=== PATIENT | female | born 1985 | race Caucasian/White ===

== ENCOUNTER 2016-10-30 17:16 | Emergency (ER) | payer OTHER ==
[2016-10-30 17:51] VITALS: BP 130/82
--- NOTE | 2016-10-30 17:56 | ED Physician Documentation ---
Sore Throat/Dental Pain - HISTORIAN Historian: patient - HPI Stated Complaint: juliane flank pain, cough Chief Complaint: Sore Throat Additional Information: sore throat started today, UTI discovered last week and on bactrim, but c/o bilat flank pain, also says she has 1 week cough and wheeze Onset: days ago Context: denies: Foreign Body, Fractured Tooth Associated Symptoms: sore throat, mild, congestion, cough. denies: fever, runny nose Worsened By: nothing Further Comments: no - ROS CONST: no problems CVS/RESP: none GI/: denies: problems urinating MS/SKIN/LYMPH: denies: muscle aches NEURO/PSYCH: none - PAST HX Past History: none Other History: none Immunizations: UTD Allergies/Adverse Reactions: Allergies Allergy/AdvReac Type Severity Reaction Status Date / Time No Known Allergies Allergy Verified 10/30/16 17:51 Home Medications: Ambulatory Orders Medication Instructions Recorded Amitriptyline HCl [Elavil] 25 mg PO HS 10/30/16 Gabapentin [Gabapentin] 300 mg PO TID 10/30/16 Hydroxyzine Pamoate [Vistaril] 25 mg PO Q6 PRN 10/30/16 Mirtazapine [Remeron] 30 mg PO HS 10/30/16 Sulfamethoxazole/Trimethoprim 1 tab PO BID 10/30/16 [Bactrim DS] - SOCIAL HX Smoking History: cigarettes Alcohol Use: heavy Drug Use: marijuana - FAMILY HX Family History: No - VITAL SIGNS Vital Signs: Vital Signs Temp Pulse Resp BP Pulse Ox 98.6 F 79 18 130/82 98 10/30/16 17:16 10/30/16 17:16 10/30/16 17:16 10/30/16 17:16 10/30/16 17:16 - REVIEWED ASSESSMENTS Nursing Assessment Reviewed: Yes Vitals Reviewed: Yes Progress - Progress Progress: RS and Flu both neg. ED Results Lab/Radiology - Lab Results Lab Results: Lab Results 10/30/16 18:15 Urine Color Yellow (YELLOW) Urine Appearance Cloudy H (CLEAR) Urine pH 6.5 (5.0 - 8.0) Ur Specific [place] 1.010 (1.010-1.030) Urine Protein Negative mg/dL mg/dL (NEGATIVE) Urine Ketones Negative mg/dL mg/dL (NEGATIVE) Urine Occult Blood Negative (NEGATIVE) Urine Nitrite Negative (NEGATIVE) Urine Bilirubin Negative (NEGATIVE) Urine Urobilinogen 0.2 Eu Eu (0.2-1.0) Ur Leukocyte Esterase Trace H (NEGATIVE) Urine Glucose Negative mg/dL mg/dL (NEGATIVE) Influenza A (Rapid) Negative (NEGATIVE) Influenza B (Rapid) Negative (NEGATIVE) Group A Strep Screen Negative (NEGATIVE) - Orders Orders: ED Orders Category Date Time Status GRP A STREP SCREEN Routine Lab 10/30/16 18:15 Completed INFLUENZA A&B Routine Lab 10/30/16 18:15 Completed INFLUENZA A&B Stat Lab 10/30/16 Uncollected THROAT CULTURE Routine Lab 10/30/16 18:15 Received UA MACRO DIP ONLY Routine Lab 10/30/16 18:15 Completed Urine drug screen [DRUG SCREEN URINE MEDICAL ONLY] Lab 10/30/16 18:15 Completed Routine Sore throat Physical Exam - EXAM General Appearance: no acute distress, alert Head/Neck: head nml inspection, no lymphadenopathy, neck nml inspection. No: cervical lymphadenopathy Eyes: eyes nml inspection Mouth/Throat: gums nml, pharyngeal erythema Ear/Nose: nml inspection Respiratory: no resp. distress, breath sounds nml CVS: reg. rate & rhythm Abdomen: soft. No: tenderness Extremities: non-tender Skin: warm/dry Neuro/Psych: oriented x3 Discharge Clincal Impression: UTI (urinary tract infection) Qualifiers: Urinary tract infection type: acute cystitis Pharyngitis Qualifiers: Pharyngitis/tonsillitis etiology: unspecified etiology Qualified Code(s): J02.9 - Acute pharyngitis, unspecified Home Medications: Ambulatory Orders Amitriptyline HCl [Elavil] 25 mg PO HS 10/30/16 Gabapentin [Gabapentin] 300 mg PO TID 10/30/16 Hydroxyzine Pamoate [Vistaril] 25 mg PO Q6 PRN 10/30/16 Mirtazapine [Remeron] 30 mg PO HS 10/30/16 Sulfamethoxazole/Trimethoprim [Bactrim DS] 1 tab PO BID 10/30/16 Condition: Good Disposition: 01 HOME, SELF-CARE Decision to Admit: NO Date of Decison to Admit: 10/30/16 Decision Time: 18:34
[2016-10-30 18:24] LABS: APPEARANCE,URINE CLOUDY (CLEAR); COLOR,URINE YELLOW (YELLOW); OCCULT BLOOD,URINE NEGATIVE (NEGATIVE); PH URINE 6.5 (5.0 - 8.0); UROBILINOGEN URINE 0.2 Eu (0.2-1.0)
[2016-10-30 18:31] LABS: AMPHETAMINE NEGATIVE ng/mL (<1000); BARBITURATES NEGATIVE ng/mL (<300); CANNABINOIDS NEGATIVE ng/mL (<50); COCAINE NEGATIVE ng/mL (<150); METHAMPHETAMINE NEGATIVE ng/mL (<1000); METHYLENEDIOXYMETHAMPHETAMINE NEGATIVE ng/mL (<500)
[2016-10-30] MEDS: KETOROLAC TROMETHAMINE 60 MG/2 ML VIAL IM ONE (18:35)
== END 2016-10-30 18:52 | disposition home or self-care (01) ==
LOC: ED 17:16
DX: N39.0 Urinary tract infection, site not specified (principal); J02.9 Acute pharyngitis, unspecified
CPT/HCPCS: 80377; 81002; 87070; 87400; 87880; J1885; 99283; G0481